=== PATIENT | female | born 2000 | race African-American/Black ===

== ENCOUNTER 2022-08-26 23:43 | Emergency (ER) | payer MEDICAID | END 2022-08-27 00:22 | disposition home or self-care (01) | LOC: CSHERS 23:43 | DX: R09.81 Nasal congestion (principal) | CPT/HCPCS: 99283 ==

== ENCOUNTER 2022-09-15 08:51 | Outpatient (CLI) | payer OTHER | END 2022-09-15 08:52 | disposition home or self-care (01) | LOC: CSHULT 08:51 | PROVIDERS: ATTEND Family Medicine | DX: Z34.02 Encounter for supervision of normal first pregnancy, second trimester (principal); Z3A.24 24 weeks gestation of pregnancy | CPT/HCPCS: 76805 ==

== ENCOUNTER 2023-01-03 11:55 | Inpatient (IN) | payer MEDICAID, OTHER ==
[2023-01-04 21:27] VITALS: BMI 28.9
[2023-01-04] MEDS ORDERED: Methylergonovine 0.2 MG/ML VIAL IM PRN (21:27)
[2023-01-04] MEDS ORDERED: Oxytocin 30 units/NS 500 ML 500 ML IV SCH ×3 (21:27)
[2023-01-04] MEDS ORDERED: Tranexamic Acid 1,000 MG/10 ML VIAL IVP PRN (21:27)
[2023-01-04] MEDS ORDERED: Promethazine HCl 25 MG/ML VIAL IM PRN (21:27)
[2023-01-04] MEDS ORDERED: Acetaminophen 500 MG TAB PO PRN (21:27)
[2023-01-04] MEDS ORDERED: Misoprostol 200 MCG TAB PR PRN (21:27)
[2023-01-04] MEDS ORDERED: Diphenoxylate HCl/Atropine Tablet PO PRN (21:27)
[2023-01-04] MEDS ORDERED: Lidocaine 1% (PF) 30 ML VIAL SC PRN (21:27)
[2023-01-04] MEDS ORDERED: Ondansetron PF 4 MG/2 ML Vial IVP PRN (21:27)
[2023-01-04] MEDS ORDERED: fentaNYL 50 mcg/mL 1 mL Vial SLOW IVP PRN (21:27)
[2023-01-04] MEDS ORDERED: hydrALAZINE 20 MG/ML VIAL SLOW IVP PRN (21:27)
[2023-01-04] MEDS ORDERED: Penicillin G Potassium 5 MILL.UNITS in Sodium Chloride 0.9% 100 ML IVPB SCH (21:27)
[2023-01-04] MEDS ORDERED: HYDROcodone/Acetaminophen 5/325 mg Tablet PO PRN (21:27)
[2023-01-04] MEDS ORDERED: Ibuprofen 800 MG TAB PO PRN (21:27)
[2023-01-04] MEDS ORDERED: Carboprost 250 MCG/ML AMP IM PRN (21:27)
[2023-01-04] MEDS: Lactated Ringer's 1,000 ML IV SCH (22:06)
[2023-01-04] MEDS: Misoprostol 100 MCG TAB PO SCH (22:07)
[2023-01-04 22:35] LABS: Hematocrit 30.3 % (34.9-44.5); Hemoglobin 10.4 g/dL (12.0-15.5); Mean Corpuscular HGB CONC 34.3 g/dL (32.0-36.0); Mean Corpuscular Hemoglobin 30.9 pg (27.0-33.0); Mean Corpuscular Volume 89.9 fl (81.6-98.3); Mean Platelet Volume 11.8 fl (7.4-10.4); Platelet Count 304 10x3/uL (150-450); Red Blood Cell (RBC) Count 3.37 10x6/uL (3.90-5.03)
[2023-01-04 23:11] LABS: Syphilis Antibody Nonreactive (Nonreactive); Syphilis Antibody Index 0.05 S/CO (<1.00 Non-Reactive)
[2023-01-04 23:13] LABS: HBSAg Index 0.18 S/CO (0-0.99); Hep B Surf Ag - L&D Non-Reactive S/CO (NonReactive)
[2023-01-05] MEDS: Penicillin G 2.5 MILL.units 2.5 MILL.UNITS in Premix 1 BAG IVPB SCH ×3 (02:39→16:54)
[2023-01-05] MEDS ORDERED: fentaNYL/Ropivacaine Epidural 100 ML ONE (03:56)
[2023-01-05] MEDS ORDERED: Sodium Bicarbonate 2.5 MEQ/5 ML VIAL ONE (04:21)
[2023-01-05] MEDS ORDERED: Ondansetron PF 4 MG/2 ML Vial IVP PRN ×2 (04:44→13:15)
[2023-01-05] MEDS ORDERED: Naloxone HCl 0.4 mg/ml Vial IVP PRN ×2 (04:44)
[2023-01-05] MEDS ORDERED: Acetaminophen 325 MG TAB PO PRN (04:44)
[2023-01-05] MEDS ORDERED: Promethazine HCl 25 MG/ML VIAL IM PRN (04:44)
[2023-01-05] MEDS ORDERED: Moisturizing Cream (Eucerin) 113 GM JAR TOP PRN (04:44)
[2023-01-05] MEDS ORDERED: ePHEDrine Sulfate 50 MG/10 ML VIAL SLOW IVP PRN (04:44)
[2023-01-05] MEDS ORDERED: Lactated Ringer's 500 ML IV PRN (04:44)
[2023-01-05] MEDS ORDERED: diphenhydrAMINE 50 MG/ML VIAL IVP PRN (04:44)
[2023-01-05] MEDS ORDERED: fentaNYL 2 mcg/Ropivacaine 0.2% Epidural 100 ML CADD EPIDURAL SCH (04:45)
[2023-01-05] MEDS ORDERED: Communication Order-Pharmacy FS SCH (04:45)
[2023-01-05] MEDS: Misoprostol 100 MCG TAB PO SCH ×3 (05:31→16:19)
[2023-01-05 10:41] LABS: pH (Cord, venous) 7.308 (7.250-7.350)
[2023-01-05] MEDS ORDERED: hydrALAZINE 20 MG/ML VIAL SLOW IVP PRN (13:15)
[2023-01-05] MEDS ORDERED: Milk Of Magnesia 30 ML UDCUP PO PRN (13:15)
[2023-01-05] MEDS ORDERED: Boostrix 0.5 ML (Tdap) VIAL (>/=7 yrs of age) IM ONE (13:15)
[2023-01-05] MEDS ORDERED: Benzocaine-Menthol 82.5 ML CAN TOP PRN (13:15)
[2023-01-05] MEDS ORDERED: Lanolin Ointment 7 GM TUBE TOP PRN (13:15)
[2023-01-05] MEDS ORDERED: diphenhydrAMINE 25 MG CAP PO PRN (13:15)
[2023-01-05] MEDS ORDERED: Bisacodyl 10 MG SUPP PR PRN (13:15)
[2023-01-05] MEDS: Ibuprofen 800 MG TAB PO SCH ×2 (16:19→21:22)
[2023-01-05] MEDS: Lactated Ringer's 1,000 ML IV SCH (16:54)
[2023-01-05] MEDS: Ferrous Sulfate 325 MG TAB PO SCH (16:55)
[2023-01-05] MEDS: HYDROcodone/Acetaminophen 5/325 mg Tablet PO PRN (18:05)
[2023-01-05] MEDS: Docusate 100 MG CAP PO SCH (21:22)
[2023-01-06] MEDS: Ibuprofen 800 MG TAB PO SCH ×3 (05:38→21:15)
[2023-01-06] MEDS: Ferrous Sulfate 325 MG TAB PO SCH (07:13)
[2023-01-06] MEDS ORDERED: Bupivacaine 0.25% HCL 30 ML VIAL ONE (08:00)
[2023-01-06] MEDS: Prenatal Vitamin 1 TAB PO SCH (08:58)
[2023-01-06] MEDS: Docusate 100 MG CAP PO SCH ×2 (08:58→21:15)
[2023-01-06] MEDS: HYDROcodone/Acetaminophen 5/325 mg Tablet PO PRN ×2 (11:52→19:53)
[2023-01-07] MEDS: Ibuprofen 800 MG TAB PO SCH ×2 (05:38→14:11)
[2023-01-07] MEDS: Ferrous Sulfate 325 MG TAB PO SCH (07:14)
[2023-01-07 07:39] VITALS: BP 122/81; TEMP 98.1
[2023-01-07] MEDS: HYDROcodone/Acetaminophen 5/325 mg Tablet PO PRN (08:24)
[2023-01-07] MEDS: Prenatal Vitamin 1 TAB PO SCH (08:25)
[2023-01-07] MEDS: Docusate 100 MG CAP PO SCH (08:25)
== END 2023-01-07 17:00 | disposition home or self-care (01) | DRG 807 ==
LOC: CSHLD 01-04 20:57 → CSHPP 01-05 13:15
PROVIDERS: ADMIT Family Medicine; ATTEND Family Medicine
PROC: 10D07Z6 Extraction of Products of Conception, Vacuum, Via Natural or Artificial Opening (ICD-10-PCS; principal; 2023-01-05)
PROC: 10907ZC Drainage of Amniotic Fluid, Therapeutic from Products of Conception, Via Natural or Artificial Opening (ICD-10-PCS; 2023-01-05)
PROC: 3E0P7VZ Introduction of Hormone into Female Reproductive, Via Natural or Artificial Opening (ICD-10-PCS; 2023-01-05)
PROC: 4A043R1 Measurement of Venous Saturation, Peripheral, Percutaneous Approach (ICD-10-PCS; 2023-01-05)
PROC: 4A033R1 Measurement of Arterial Saturation, Peripheral, Percutaneous Approach (ICD-10-PCS; 2023-01-05)
PROC: 3E033XZ Introduction of Vasopressor into Peripheral Vein, Percutaneous Approach (ICD-10-PCS; 2023-01-05)
DX: O99.824 Streptococcus B carrier state complicating childbirth (principal); Z37.0 Single live birth; O09.513 Supervision of elderly primigravida, third trimester; Z3A.40 40 weeks gestation of pregnancy
CPT/HCPCS: 36415; 51702; 82805; 85027; 86780; 86850; 86900; 86901; 87340; J2540; J2590; J3490; J7120; S0020